=== PATIENT | male | born 1960 | race Caucasian/White ===

== ENCOUNTER 2016-06-07 22:33 | Emergency (ER) | payer OTHER ==
[~2016-06-07 22:33] MED LIST: *UNABLE3; ABX PO; BACDS PO; BENTYL10 PO; BENTYL20 PO; BLOOD PRESSURE PO; CELEXA10 PO; CELEXA20 PO; CYMBALTA30 PO; DIABETES RX PO; ERY-TAB250 MG PO; FLAG500TAB PO; FLEX PO; GLUCOPHAGE1000 MG PO; GLUCOTRO10 PO; GLUCPH PO; GLUCXL5 PO; IBU800 PO; LEVEMFLXPN SC; LEVEMIR SC; LEVSINTAB PO; LEVSINTAB SL; LIBRAX PO; LOP50 PO; LORTAB10 PO; MARI5 PO; NORCO1 TA2 PO; NORV10 PO; NOVOLOG SC; NOVOPEN SC; PAX10 PO; PEP20 PO; PR25 PO; PRILOSEC OTC20 MG PO; PRIN10 PO; PROTONIX PO; REG PO; ROBINUL FORT2 MG PO; SUCR PO; T PO; V80 PO; VANC125UDL PO; VICODINTAB PO; XIFAXAN550 MG PO; ZANTAC150 MG PO; ZOFRAN8 PO; ZOFRANODT8 PO; [UNRECOGNIZED DRUG - REMARK] PO
[2016-06-07 22:45] LABS: WBC (NOT ORDERED) (RFLEX) 0 (0-5)
[2016-06-07 22:48] LABS: BASOPHILS 0.2 %; BASOPHILS ABSOLUTE 0.02 10/3/uL (0.0-0.16); EOSINOPHILS 0.7 %; EOSINOPHILS ABSOLUTE 0.06 10/3/uL (0.0-0.53); HEMOGLOBIN 11.8 g/dL (13.6-17.8); IMMATURE GRANULOCYTES 0.1 %; IMMATURE GRANULOCYTES ABSOLUTE 0.01 10/3/uL (0.0-0.11); LYMPHOCYTES 19.6 %; MEAN CORPUSCULAR HEMOGLOB 26.1 pg (26.0-34.0); MEAN CORPUSCULAR VOLUME 81.9 fL (80-100); MEAN PLATELET VOLUME 9.7 fL (9.2-13.0); MONOCYTES 7.1 %; MONOCYTES ABSOLUTE 0.65 10/3/uL (0.21-1.20); NEUTROPHILS 72.3 %; NEUTROPHILS ABSOLUTE 6.65 10/3/uL (2.02-8.40); PLATELET COUNT 277 10/3/uL (150-400); RBC DISTRIBUTION WIDTH 14.7 % (12.0-16.0); RED CELL COUNT 4.52 10/6/uL (4.7-6.1); WHITE BLOOD CELLS 9.2 10/3/uL (4.5-10.5)
[2016-06-07 22:49] LABS: MANUAL DIFF NO %; MEAN CORPUS HGB CONC 31.9 g/dL (32.0-36.0)
[2016-06-07 22:53] LABS: ASCORBIC ACID (UR NOT ORDER) NEG (NEG); BILIRUBIN, URINE SMALL (NEG); ER URINALYSIS TAT 0 Hrs 09 Mins; KETONE, URINE 20 MG/DL (NEG); LEUKOCYTE ESTERASE(NOT OR NEG (NEG); NITRITE (URINE) NEG (NEG)
[2016-06-07 23:03] LABS: A/G RATIO 0.9 (0.7-1.9); ALBUMIN 3.6 G/DL (3.5-5.0); ALKALINE PHOSPHATASE 91 U/L (45-117); BUN (BLOOD UREA NITROGEN) 17 MG/DL (6-23); CALCIUM, SERUM 8.7 MG/DL (8.5-10.4); CHLORIDE, SERUM 102 MMOL/L (96-112); CO2 (CARBON DIOXIDE) 27 MMOL/L (24-34); SGOT(AST) 32 U/L (5-40); SGPT(ALT) 40 U/L (5-65); SODIUM, SERUM 140 MMOL/L (135-148); TOTAL BILIRUBIN 0.6 MG/DL (0-1.2); TOTAL PROTEIN 7.4 G/DL (6.0-8.5)
[2016-06-07 23:05] LABS: CREATININE 1.25 MG/DL (0.70-1.30); GFR AFRICAN AMERICAN 74 ML/MIN (>=60); GFR NON AFRICAN AMERICAN 64 ML/MIN (>=60); GLOBULIN 3.8 G/DL (2.5-4.1); GLUCOSE, SERUM 225 MG/DL (60-99)
[2016-10-24] MEDS ORDERED: ATEN100 PO (13:42)
[2016-10-24] MEDS ORDERED: SUCR PO (13:43)
[2016-10-24] MEDS ORDERED: NOVOLOG SC (13:45)
[2016-10-24] MEDS ORDERED: LEVEMIR SC (13:46)
[2016-10-24] MEDS ORDERED: ZANAFLEX 4 MG TA4 MG PO (13:47)
[2016-11-15] MEDS ORDERED: ZANAFLEX 4 MG TA4 MG PO (04:00)
[2016-11-15] MEDS ORDERED: KLONO5 PO (04:01)
[2016-11-15] MEDS ORDERED: NORCO1 TA2 PO (04:02)
[2016-11-15] MEDS ORDERED: MARI5 PO (04:03)
[2016-11-15] MEDS ORDERED: PARAFON FORT PO (04:03)
[2016-11-15] MEDS ORDERED: PROTONIX PO (04:04)
[2016-11-15] MEDS ORDERED: ATEN100 PO (04:04)
[2016-11-15] MEDS ORDERED: NOVOPEN SC (04:05)
[2016-11-15] MEDS ORDERED: SUCR PO (04:05)
[2016-11-15] MEDS ORDERED: LEVEMIR SC (04:06)
[2016-11-15] MEDS ORDERED: *UNABLE1 (04:10)
== END 2016-06-08 01:04 | disposition home or self-care (01) ==
LOC: ER 22:33
PROVIDERS: Specialist
DX: R10.9 Unspecified abdominal pain (principal); R11.2 Nausea with vomiting, unspecified; E11.9 Type 2 diabetes mellitus without complications; Z86.73 Personal history of transient ischemic attack (TIA), and cerebral infarction without residual deficits; Z88.5 Allergy status to narcotic agent; Z88.0 Allergy status to penicillin; Z79.899 Other long term (current) drug therapy; Z79.4 Long term (current) use of insulin
CPT/HCPCS: 80053; 81001; 83690; 85025; 99284; A9270-GY

== ENCOUNTER 2016-10-26 06:42 | Day surgery (SDC) | payer OTHER ==
[~2016-10-26] VITALS: Ht 185.4 cm; Wt 124.7 kg
--- NOTE | ~2016-10-26 | EGD ---
EGD REPORT [facility] [address] [id number] NAME: JOELLEN BERNAL : 60 STATUS : REG [facility]#: [id number] AGE: 56 ADM/REG DATE : 10/26/16 MR#: [id number] REPORT SERV DATE: 10/26/16 DICTATED BY: PJ MCCOY DATE: 10/26/16 REPORT STATUS : Draft [facility]: [facility] DATE: 10/26/16 [facility] Center Patient Name: Joellen Bernal Date of : 1960 Attending MD: PJ MCCOY MD Procedure Date No Time: 10/26/2016 Procedure: Upper GI endoscopy Indications: Epigastric abdominal pain, Abdominal pain in the right upper quadrant, Gastro-esophageal reflux disease, Diarrhea, Early satiety, Nausea with vomiting Referring MD: HOMERO ARROYO MD Medicines: Propofol per Anesthesia Complications: No immediate complications. Procedure: After obtaining informed consent, the endoscope was passed under direct vision. Throughout the procedure, the patient's blood pressure, pulse, and oxygen saturations were monitored continuously. The GIF [id number] was introduced through the mouth, and advanced to the third part of duodenum. The upper GI endoscopy was accomplished without difficulty. The patient tolerated the procedure well. Findings: Non-severe esophagitis with no bleeding was found in the lower third of the esophagus. A small hiatus hernia was present. as seen on retroflexion Diffuse mild inflammation characterized by congestion (edema) and erythema was found in the entire examined stomach. Biopsies were taken with a cold forceps for Helicobacter pylori testing. The examined duodenum was normal. Biopsies were taken with a cold forceps for evaluation of celiac disease. And giardia, whipple's disease, and enteritis Impression: - Non-severe reflux esophagitis. - Hiatus hernia. - Gastritis. Biopsied. - Normal examined duodenum. Biopsied. Recommendation: - Patient has a contact number available for emergencies. The signs and symptoms of potential delayed complications were discussed with the patient. Return to normal activities tomorrow. Written discharge instructions were provided to the patient. - Return to previous diet. - Continue present medications. EGD REPORT [address] [address] NAME: JOELLEN BRENAL : 60 STATUS : REG [facility] [place] PAT#: [id number] AGE: 56 ADM/REG DATE : 10/26/16 MR#: [id number] REPORT SERV DATE: 10/26/16 DICTATED BY: PJ MCCOY DATE: 10/26/16 REPORT STATUS : Draft TRANSCRIBED BY: [employer] DATE: 10/26/16 - Await pathology results. - Return to my office in 1 month. - Discharge patient to home. Procedure Code(s): --- Professional --- 13213, Esophagogastroduodenoscopy, flexible, transoral; with biopsy, single or multiple Diagnosis Code(s): --- Professional --- K21.0, Gastro-esophageal reflux disease with esophagitis K44.9, Diaphragmatic hernia without obstruction or gangrene K29.70, Gastritis, unspecified, without bleeding R10.13, Epigastric pain R10.11, Right upper quadrant pain R19.7, Diarrhea, unspecified R68.81, Early satiety R11.2, Nausea with vomiting, unspecified CPT copyright 2013 [employer]. All rights reserved. The codes documented in this report are preliminary and upon design consultant review may be revised to meet current compliance requirements. Pj Mccoy MD PJ MCCOY MD 10/26/2016 10:02 AM This report has been signed electronically. Number of Addenda: 0 Note Initiated On: 10/26/2016 9:42 AM Scope Withdrawal Time 0 hours 0 minutes 0 seconds [address] [id number]
[~2016-10-26 06:42] MED LIST changes: +ATEN100 PO; +ZANAFLEX 4 MG TA4 MG PO
== END 2016-10-26 23:59 | disposition home or self-care (01) ==
LOC: DMU 06:42
PROVIDERS: Internal Medicine Gastroenterology
PROC: 0DB68ZX Excision of Stomach, Via Natural or Artificial Opening Endoscopic, Diagnostic (ICD-10-PCS; 2016-10-26)
PROC: 0DB98ZX Excision of Duodenum, Via Natural or Artificial Opening Endoscopic, Diagnostic (ICD-10-PCS; principal; 2016-10-26 08:30)
DX: K29.60 Other gastritis without bleeding (principal); K21.0 Gastro-esophageal reflux disease with esophagitis; K44.9 Diaphragmatic hernia without obstruction or gangrene; K58.9 Irritable bowel syndrome, unspecified; G89.29 Other chronic pain; E11.43 Type 2 diabetes mellitus with diabetic autonomic (poly)neuropathy; K31.84 Gastroparesis; I10 Essential (primary) hypertension; Z86.73 Personal history of transient ischemic attack (TIA), and cerebral infarction without residual deficits; Z88.0 Allergy status to penicillin; Z88.5 Allergy status to narcotic agent; Z88.6 Allergy status to analgesic agent; Z90.49 Acquired absence of other specified parts of digestive tract; Z98.890 Other specified postprocedural states; Z79.899 Other long term (current) drug therapy
CPT/HCPCS: 82962; 88305; J2405